=== PATIENT | female | born 1960 | race Caucasian/White ===

== ENCOUNTER 2016-07-25 08:44 | Inpatient (IN) | payer OTHER ==
[~2016-07-25] VITALS: Ht 162.6 cm; Wt 141.5 kg
[~2016-07-25 08:44] MED LIST: BRINTELLIX10 MG PO; ERGOCALCIF50000 UNIT PO; ESTROGEN-METHY1 EAC2 PO; LATUDA20 MG PO; LYRICA225 MG PO; MOBIC15 MG PO; NEXIUM40 MG PO; SYNTHROID75 MCG PO; VENTOLIN HFA18 GM IH; WELLBUTRIN XL300 MG PO; WOMEN'S DAILY1 EACH PO
[2016-07-25 10:09] VITALS: BP 144/67
[2016-07-25 10:25] LABS: POINT-OF-CARE METER ID UU14174212
[2016-07-25 16:05] VITALS: BP 137/77
[2016-07-25 19:49] VITALS: BP 136/65
[2016-07-25 23:10] VITALS: BP 146/74
[2016-07-26 03:39] VITALS: BP 144/68
[2016-07-26 07:19] LABS: ANION GAP 7 MEQ/L (2-14); CHLORIDE 105 MEQ/L (99-109); GFR ESTIMATE (CALCULATED) > 59 mL/min/; GLUCOSE 124 mg/dL (70-99); MAGNESIUM 1.7 mg/dl (1.3-2.7); POTASSIUM 4.7 MEQ/L (3.7-5.4); SAMPLE HEMOLYSIS CHECK 0; SAMPLE ICTERIC CHECK 0; SAMPLE LIPEMIA CHECK 0; SODIUM 139 MEQ/L (136-147); UREA NITROGEN (BUN) 12 mg/dL (9-23)
[2016-07-26 07:26] VITALS: BP 123/58
[2016-07-26 07:30] LABS: HEMATOCRIT 41.4 % (36.0-46.0); MCH 27.5 PG (29.0-34.0); MCHC 32.9 G/DL (30.0-36.0); MCV 83.8 FL (83-99); RBC DIS.WIDTH-CV 16.2 % (11.8-14.6); RBC DIS.WIDTH-SD 49.5 % (39-53); RED BLOOD COUNT 4.94 M/uL (3.80-5.20); WHITE BLOOD COUNT 7.8 K/uL (4.1-10.2)
[2016-07-26 08:02] LABS: MEAN PLAT.VOLUME 13.2 uM^3 (9.5-12.4); PLATELET COUNT UNABLE TO REPORT K/uL (156-360)
[2016-07-26] MEDS ORDERED: HYDROCODON-ACE1 EAC7 PO (08:40)
[2016-07-26 11:21] VITALS: BP 128/72
== END 2016-07-26 12:25 | disposition home or self-care (01) | DRG 641 ==
LOC: 2SOUTH 08:44 → 2EAST 15:59
PROVIDERS: Surgery
PROC: 0DB64ZZ Excision of Stomach, Percutaneous Endoscopic Approach (ICD-10-PCS; principal; 2016-07-25)
DX: E66.01 Morbid (severe) obesity due to excess calories (principal); Z68.43 Body mass index [BMI] 50.0-59.9, adult; E03.9 Hypothyroidism, unspecified; K21.9 Gastro-esophageal reflux disease without esophagitis; M19.90 Unspecified osteoarthritis, unspecified site; F32.9 Major depressive disorder, single episode, unspecified; M79.7 Fibromyalgia
CPT/HCPCS: 80048; 82948; 83735; 84100; 85027; J0330; J1100; J1170; J1580; J1644; J1650; J1815; J2250; J2405; J2710; J2765; J3010; J3480; J7050; J7120; S0020